=== PATIENT | female | born 1945 | race Caucasian/White ===

== ENCOUNTER 2022-03-04 13:41 | Emergency (ER) | payer MEDICARE, OTHER ==
[2022-03-04 13:47] VITALS: BP 160/72
[2022-03-04 14:04] LABS: GLUCOSE, URINE (UA) NEGATIVE (NEGATIVE); KETONES,URINE (UA) 40 mg/dL (NEGATIVE); LEUKOCYTE ESTERASE, URINE MODERATE (NEGATIVE); NITRITE,URINE POSITIVE (NEGATIVE); OCCULT BLOOD,URINE LARGE (NEGATIVE); PH,URINE 5.5 PH (5.0-7.5); PROTEIN,URINE 100 mg/dL (NEGATIVE); UROBILINOGEN,URINE 0.2 (NORMAL) E.U./dL (NORMAL)
[2022-03-04 14:05] LABS: CLARITY,URINE CLOUDY (CLEAR)
[2022-03-04 14:10] LABS: BILIRUBIN,URINE NEGATIVE (NEGATIVE); ICTOTEST,URINE NEGATIVE
--- NOTE | 2022-03-04 14:15 | ED Physician Documentation ---
History of Present Illness - Stated complaint Stated Complaint: FEMALE - Chief complaint Chief Complaint: UTI - History obtained from History obtained from: Patient - History of Present Illness Timing: Today Pain level max: 5 Pain level now: 3 - Additonal information Additional information: 76 year old female with dysuria for several days. Longstanding history of recurrent UTIs. She states that this feels similar. No fevers. No chills. No vomiting. No abdominal pain other than suprapubic. No flank pain. Worse with urination, nothing makes it better. Review of Systems Constitutional: denies: Fever, Chills GI: denies: Vomiting, Diarrhea Skin: denies: Rash Musculoskeletal: denies: Neck pain, Back pain Neurologic: denies: Headache PD PAST MEDICAL HISTORY - Past Medical History Past Medical History: Yes Cardiovascular: High cholesterol : Other (UTI) - Present Medications Home Medications: Ambulatory Orders Medication Instructions Recorded Confirmed Ascorbic Acid [Vitamin C] 1,000 mg PO DAILY 03/04/22 03/04/22 Calcium Carb/Mag Ox/Zinc Sulf 1 tab PO DAILY 03/04/22 03/04/22 [Bbl-Mrq-Ueiv 334-134-5 mg Tab] [place]-3/Dha/Epa/Fish Oil [Fish Oil 1 tab PO DAILY 03/04/22 03/04/22 1,000 mg Softgel] Pantoprazole Sodium 20 mg PO DAILY 03/04/22 03/04/22 Pravastatin [Pravachol] 40 mg PO DAILY 03/04/22 03/04/22 buPROPion [Wellbutrin Sr] 150 mg PO BID 03/04/22 03/04/22 cephALEXin [Keflex] 500 mg PO Q6H #20 cap 03/04/22 - Allergies Allergies/Adverse Reactions: Allergies Allergy/AdvReac Type Severity Reaction Status Date / Time codeine Allergy Emesis Verified 03/04/22 13:44 morphine Allergy Emesis Verified 03/04/22 13:44 - Living Situation Living Situation: reports: With family Living Arrangement: reports: At home - Social History Does the pt smoke?: No Does the pt have substance abuse?: No PD ED PE NORMAL - Vitals Vital signs reviewed: Yes - General General: Alert and oriented X 3, No acute distress, Well developed/nourished - HEENT HEENT: Moist mucous membranes - Neck Neck: Supple, no meningeal sign - Cardiac Cardiac: RRR - Respiratory Respiratory: No respiratory distress, Clear bilaterally - Abdomen Abdomen: Soft, Non tender, Non distended - Back Back: No CVA TTP - Derm Derm: Warm and dry - Extremities Extremities: No edema - Neuro Neuro: Alert and oriented X 3 Results - Vitals Vitals: Vital Signs - 24 hr 03/04/22 13:44 Temperature 36.5 C Heart Rate 80 Respiratory 16 Rate Blood Pressure 160/72 H O2 Saturation 98 Oxygen O2 Source Room air - Labs Labs: Laboratory Tests 03/04/22 13:55 Urine Color YELLOW Urine Clarity CLOUDY Urine pH 5.5 Ur Specific [place] >=1.030 H Urine Protein 100 H Urine Glucose (UA) NEGATIVE Urine Ketones 40 H Urine Occult Blood LARGE H Urine Nitrite POSITIVE H Urine Bilirubin NEGATIVE Urine Urobilinogen 0.2 (NORMAL) Ur Leukocyte Esterase MODERATE H Urine RBC TNTC H Urine WBC >25 H Urine WBC Clumps PRESENT Ur Squamous Epith Cells RARE Squamous Urine Bacteria Few Ur Microscopic Review INDICATED Urine Culture Comments INDICATED PD MEDICAL DECISION MAKING - ED course Complexity details: reviewed results, considered differential, d/w patient ED course: Patient with a UTI. No evidence of pyelonephritis or sepsis. Will place on antibiotics for home. Patient is well-appearing, nontoxic. Afebrile. Patient counseled regarding signs and symptoms for which I believe and urgent re-evaluation would be necessary. Patient with good understanding of and agreement to plan and is comfortable going home at this time This document was made in part using voice recognition software. While efforts are made to proofread this document, sound alike and grammatical errors may occur. Departure - Departure Disposition: 01 Home, Self Care Clinical Impression: Urinary tract infection Qualifiers: Urinary tract infection type: acute cystitis Hematuria presence: without hematuria Qualified Code(s): N30.00 - Acute cystitis without hematuria Condition: Good Instructions: ED UTI Cystitis Female Follow-Up: your,doctor as needed [Other] Prescriptions: cephALEXin [Keflex] 500 mg PO Q6H #20 cap Comments: Your prescriptions were sent to [facility] in [place]. Please follow-up with your doctor as needed for further care. Please return if you worsen. Take all antibiotics until gone. A urine culture was sent and if any antibiotic changes needed, we will call you. Discharge Date/Time: 03/04/22 14:25
[2022-03-04 14:18] LABS: RBC,URINE TNTC /HPF (0-5); SQUAMOUS EPITHELIAL CELL,UR RARE Squamous (<= Few); WBC CLUMPS,URINE PRESENT; WBC,URINE >25 /HPF (0-5)
[2022-03-04 14:19] LABS: BACTERIA,URINE Few /HPF (None Seen)
== END 2022-03-04 14:25 | disposition home or self-care (01) ==
LOC: ED 13:41
DX: N30.00 Acute cystitis without hematuria (principal)
CPT/HCPCS: 81001; 81003; 87086; 87181; 99282; 99283